=== PATIENT | female | born 1975 | race Caucasian/White ===

== ENCOUNTER 2017-03-22 08:41 | Day surgery (SDC) | payer BC ==
[2017-03-21 12:38] LABS: CHLORIDE,CL 109 mmol/L (98-110); SODIUM,NA 140 mmol/L (136-146)
[~2017-03-22 08:41] MED LIST: Fluorescein 5 ML Vial ONE; Lidocaine 2% 5 ML SDV ONE; Midazolam 1 MG/ML 2 ML SDV ONE; Neostigmine Methylsulfate 1 MG/ML 5 ML Syringe ONE; Octyl 2-Cyanoacrylate 1 Tube ONE; Ondansetron 4 MG/2 ML SDV ONE; Propofol 200 MG/20 ML SDV ONE; Rocuronium 10 MG/ML 10 ML Syringe ONE; Sodium Chloride 0.9% 10 ML Syringe FLUSH PRN; Sodium Chloride 0.9% 2.5 ML Syringe FLUSH PRN; ceFAZolin 2 GM in Premix Bag 1 BAG IV ONE; fentaNYL 100 MCG/2 ML SDV ONE
[2017-03-22] MEDS: Lactated Ringers 1,000 ML IV SCH ×2 (09:56→17:32)
--- NOTE | 2017-03-22 10:29 | PCM.PREANE ---
Preanesthetic Assessment - Anesthesia/Transfusion/Family Hx Anesthesia History: Prior Anesthesia Without Reaction Family History of Anesthesia Reaction: No Transfusion History: No Prior Transfusion(s) Intubation History: Unknown - Review of Systems General: No Symptoms Pulmonary: No Symptoms Cardiovascular: No Symptoms Gastrointestinal: No Symptoms Neurological: No Symptoms Other: Reports: None - Physical Assessment Height: 1.73 m Weight: 61.689 kg ASA Class: 2 Mental Status: Alert & Oriented x3 Airway Class: Mallampati = 3 Dentition: Reports: Normal Dentition Thyro-Mental Finger Breadths: 3 Mouth Opening Finger Breadths: 3 ROM/Head Extension: Full Lungs: Clear to Auscultation, Normal Respiratory Effort Cardiovascular: Regular Rate, Regular Rhythm - Lab Values: Laboratory Last Values WBC 3.88 K/uL (4.0-11.0) L 03/21/17 11:44 RBC 4.11 M/uL (4.30-5.90) L 03/21/17 11:44 Hgb 11.9 g/dL (12.0-16.0) L 03/21/17 11:44 Hct 35.6 % (36.0-46.0) L 03/21/17 11:44 MCV 86.6 fL (80.0-98.0) 03/21/17 11:44 MCH 29.0 pg (27.0-32.0) 03/21/17 11:44 MCHC 33.4 g/dL (31.0-37.0) 03/21/17 11:44 RDW Std Deviation 39.0 fl (28.0-62.0) 03/21/17 11:44 RDW Coeff of Severo 12 % (11.0-15.0) 03/21/17 11:44 Plt Count 220 K/uL (150-400) 03/21/17 11:44 MPV 9.30 fL (7.40-12.00) 03/21/17 11:44 Nucleated RBC % 0.0 /100WBC 03/21/17 11:44 Nucleated RBCs # 0 K/uL 03/21/17 11:44 Sodium 140 mmol/L (136-146) 03/21/17 11:44 Potassium 4.0 mmol/L (3.5-5.1) 03/21/17 11:44 Chloride 109 mmol/L (98-110) 03/21/17 11:44 Carbon Dioxide 25 mmol/L (21-31) 03/21/17 11:44 BUN 10 mg/dL (6.0-23.0) 03/21/17 11:44 Creatinine 0.7 mg/dL (0.6-1.5) 03/21/17 11:44 Est Cr Clr Drug Dosing 100.92 mL/min 03/21/17 11:44 Estimated GFR (MDRD) > 60.0 ml/min 03/21/17 11:44 Glucose 78 mg/dL (60-110) 03/21/17 11:44 Calcium 9.3 mg/dL (8.8-10.8) 03/21/17 11:44 HCG, Qual NEGATIVE (NEG) 03/21/17 11:44 Blood Type O NEGATIVE 03/21/17 11:44 Antibody Screen NEGATIVE 03/21/17 11:44 - Allergies Allergies/Adverse Reactions: Allergies Allergy/AdvReac Type Severity Reaction Status Date / Time No Known Allergies Allergy Verified 03/19/17 10:00 - Blood Blood Available: No - Anesthesia Plan Pre-Op Medication Ordered: None - Acknowledgements Anesthesia Type Planned: General Anesthesia Pt an Appropriate Candidate for the Planned Anesthesia: Yes Alternatives and Risks of Anesthesia Discussed w Pt/Guardian: Yes Pt/Guardian Understands and Agrees with Anesthesia Plan: Yes PreAnesthesia Questionnaire HEENT History: Reports: Other (See Below) Other HEENT History: wears glasses Gastrointestinal History: Reports: None Genitourinary History: Reports: None 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 [No Known Home Meds] 03/19/17 [History] - CURRENT (IN HOUSE) MEDS Current Meds: Current Medications Lactated Ringer's (Ringers, Lactated) 1,000 mls @ 125 mls/hr IV ASDIRECTED [facility] Last Admin: 03/22/17 09:56 Dose: 125 mls/hr Sodium Chloride (Saline Flush) 10 ml FLUSH ASDIRECTED PRN PRN Reason: Keep Vein Open Sodium Chloride (Saline Flush) 2.5 ml FLUSH ASDIRECTED PRN PRN Reason: Keep Vein Open Discontinued Medications Fentanyl (Sublimaze) Confirm Administered Dose 200 mcg .ROUTE .STK-MED ONE Stop: 03/22/17 07:06 Fluorescein Sodium (Ak-Fluor) Confirm Administered Dose 5 ml .ROUTE .STK-MED ONE Stop: 03/22/17 07:43 Glycopyrrolate () Confirm Administered Dose 1 mg .ROUTE .STK-MED ONE Stop: 03/22/17 07:05 Cefazolin Sodium/Dextrose 2 gm (/ Premix) 50 mls @ 100 mls/hr IV ONETIME ONE Stop: 03/21/17 08:49 Lidocaine (Xylocaine-Mpf 2%) Confirm Administered Dose 5 ml .ROUTE .STK-MED ONE Stop: 03/22/17 07:05 Midazolam HCl (Versed 1 Mg/Ml) Confirm Administered Dose 2 mg .ROUTE .STK-MED ONE Stop: 03/22/17 07:06 Neostigmine Methylsulfate (Neostigmine) Confirm Administered Dose 5 mg .ROUTE .STK-MED ONE Stop: 03/22/17 07:05 Octyl Cyanoacrylate (Dermabond Advance) Confirm Administered Dose 1 applic .ROUTE .STK-MED ONE Stop: 03/22/17 07:43 Ondansetron HCl (Zofran) Confirm Administered Dose 4 mg .ROUTE .STK-MED ONE Stop: 03/22/17 07:05 Propofol (Diprivan 20 Ml) Confirm Administered Dose 200 mg .ROUTE .STK-MED ONE Stop: 03/22/17 07:05 Rocuronium [place] (Zemuron) Confirm Administered Dose 100 mg .ROUTE .STK-MED ONE Stop: 03/22/17 07:05
[2017-03-22] MEDS ORDERED: Sodium Chloride 0.9% 20 ML ONE (11:11)
[2017-03-22] MEDS ORDERED: ceFAZolin 1 GM Vial ONE (11:11)
[2017-03-22] MEDS ORDERED: ePHEDrine 50 MG/ML SDV ONE (11:29)
[2017-03-22] MEDS ORDERED: fentaNYL 100 MCG/2 ML SDV ONE (11:37)
[2017-03-22] MEDS ORDERED: Furosemide 40 MG/4 ML VIAL ONE (11:45)
[2017-03-22] MEDS ORDERED: HYDROmorphone 2 MG/ML Syringe ONE (12:34)
[2017-03-22] MEDS ORDERED: Acetaminophen/oxyCODONE 325-5 MG Tab PO PRN (13:03)
[2017-03-22] MEDS ORDERED: Ketorolac 30 MG/ML SDV IVPUSH ONE (13:03)
[2017-03-22] MEDS ORDERED: Morphine 4 MG/ML Syringe IVPUSH PRN (13:03)
[2017-03-22] MEDS ORDERED: Ondansetron 4 MG/2 ML SDV IVPUSH PRN (13:03)
[2017-03-22] MEDS ORDERED: Promethazine 25 MG/ML SDV IM PRN (13:03)
[2017-03-22] MEDS ORDERED: Morphine 2 MG/ML Syringe IVPUSH PRN (13:03)
[2017-03-22] MEDS ORDERED: Ketorolac 30 MG/ML SDV IVPUSH PRN (13:03)
--- NOTE | 2017-03-22 13:09 | PCM.OPNOTE ---
- General Post-Op/Procedure Note Date of Surgery/Procedure: 03/22/17 Operative Procedure(s): TLH,Bila salpengectomy,L overectomy, and Cystoscopy. Pre Op Diagnosis: Ovarian Cysr , elenated CA125 L. ovarian cyst Post-Op Diagnosis: Same Anesthesia Technique: General ET Tube Primary Surgeon: Maciel Garza Press Machine Operator: Gabriella Noble EBL in mLs: 100 Complications: None Condition: Good
[2017-03-22] MEDS ORDERED: fentaNYL 100 MCG/2 ML SDV IVPUSH PRN (13:21)
[2017-03-22] MEDS ORDERED: HYDROmorphone 2 MG/ML Syringe IVPUSH ONE (13:21)
--- NOTE | 2017-03-22 14:02 | PCM.POSTAN ---
POST ANESTHESIA ASSESSMENT - MENTAL STATUS Mental Status: Alert, Oriented - RESPIRATORY Respiratory Status: Respiratory Rate WNL, Airway Patent, O2 Saturation Stable - CARDIOVASCULAR CV Status: Pulse Rate WNL, Blood Pressure Stable - GASTROINTESTINAL GI Status: No Symptoms - PAIN Pain Score: 0 - POST OP HYDRATION Hydration Status: Adequate & Stable
--- NOTE | 2017-03-22 14:34 | OR ---
SURGEON: Maciel Garza MD DATE OF PROCEDURE: 03/22/2017 PREOPERATIVE DIAGNOSES: 1. Right ovarian cyst. 2. Elevated CA-125. 3. Enlarged uterus. POSTOPERATIVE DIAGNOSES: 1. Right ovarian cyst. 2. Elevated CA-125. 3. Enlarged uterus. 4. Endometriosis of the pelvis and the uterus and both ovaries. 5. The frozen section for the right ovarian cyst has confirmed the finding of endometriosis. OPERATION PERFORMED: Diagnostic laparoscopy, peritoneal lavage, for opening cytology, right salpingectomy sent for frozen section, total laparoscopic hysterectomy, fulguration of endometriosis on the right ovary, bilateral salpingectomy, and cystoscopy. RING ATTACHER: HARLEY Arroyo. ANESTHESIA: General endotracheal intubation, Baudilio Villanueva and Dr. Hernandez. ESTIMATED BLOOD LOSS: 100 mL. COMPLICATION: None. FINDING: The patient had an endometrioma of the right ovary. There is endometriosis involving the entire uterus and the serosa, there is endometriosis involving the left ovary. There are endometriosis of the pelvic sidewalls and endometriosis of the cul-de-sac. By staging of endometriosis, this would be a stage III endometriosis of the pelvis according to the [employer] staging. INDICATION FOR THE SURGERY: Pinon refer to the admit note. PROCEDURE IN DETAIL: The patient was brought to the OR, properly identified. After adequate level of general anesthesia, the patient was placed in lithotomy position, prepped and draped in sterile fashion as usual and the [place] [facility] colpotomizer manipulator was placed in the uterus and the vagina and Watson catheter was placed in the bladder for drainage and then the operation shifted abdominally. Stab wound done beneath the umbilicus. The Veress needle was placed in the peritoneal cavity and that cavity insufflated to 6 L of carbon dioxide and then utilizing the Visiport technique, a 5-mm trocar, entered the abdomen through the scope beneath the umbilicus. Once we entered and then under direct vision, a 10- 12 trocar was placed in the left iliac fossa and 5-mm trocar in the right iliac fossa. We started by exploring the pelvis, which confirmed the above-mentioned diagnoses. I proceeded to do the opening cytology and fluid is collected and sent for cytology. I removed the right ovary, which is quite apparent now clinically that it has a large endometrioma and it is endometriosis and it is not cancerous; however, we removed the left ovary with the cyst and send it for histopathology, frozen section, which is reported later on, confirmed that this is an endometrioma and endometriosis. We proceeded with the procedure of doing the total laparoscopic hysterectomy, and that is done by coagulating and transecting the superior pedicle. The patient wanted to have right ovary to be preserved and she want every effort is made to preserve that ovary. So I went ahead and preserved that ovary; however, both tubes were removed with the specimen. The round ligament was coagulated and transected on both sides and then the anterior leaf of the broad ligament dissected downward medially pushing the bladder completely away from the operative field. Then, the uterine vessel was identified, coagulated, transected at the level of the internal vaginal ring. Once this got done, then the vagina entered anteriorly and in a circular manner using the Michael Harmonic scapula detaching the cervix from its attachment to the vagina. The uterus was removed vaginally and then pneumoperitoneum re- established by placing vaginal pack in the vagina. Went to proceed to close the vaginal cuff laparoscopically, using 2-0 PDS interrupted, and attention was paid to the right ovary at this time. The area of endometriosis on the ovary outside is cauterized with unipolar electrocautery. Then thorough irrigation of the pelvis was done with all the pedicles. There was no oozing, no bleeding. While we were doing that, we asked Anesthesia to give the patient fluorescein and then the abdomen was deflated and Watson catheter was removed. Cystoscopy was performed. The bladder was intact. Both ureteric orifices were seen with the dye coming from both of them. Thus, the patency of both ureters were verified. Satisfied with these findings, the procedure ended. The instrument and hardware were retrieved from the abdomen and the vagina and the multiple laparoscopic incision is closed in layers. Instrument and sponge count was correct. The patient tolerated the procedure well, went to recovery room in stable general condition. JESS / NUBIA /[id number]
--- NOTE | 2017-03-22 17:11 | PCM48HPAN ---
Post Anesthesia Note - EVALUATION WITHIN 48HRS OF ANESTHETIC Vital Signs in Normal Range: Yes Patient Participated in Evaluation: Yes Respiratory Function Stable: Yes Airway Patent: Yes Cardiovascular Function Stable: Yes Hydration Status Stable: Yes Pain Control Satisfactory: Yes Nausea and Vomiting Control Satisfactory: Yes Mental Status Recovered: Yes - COMMENTS/OBSERVATIONS Free Text/Narrative:: Denies any pain. States she is just "very tired."
[2017-03-23] MEDS: Acetaminophen/oxyCODONE 325-5 MG Tab PO PRN ×2 (00:13→08:44)
[2017-03-23 05:51] LABS: CHLORIDE,CL 106 mmol/L (98-110); SODIUM,NA 137 mmol/L (136-146)
[2017-03-23 08:15] VITALS: BP 98/54
--- NOTE | 2017-03-23 09:03 | PCM.SURGPN ---
- General Info Date of Service: 03/23/17 POD#: 1 Functional Status: Reports: Pain Controlled - Review of Systems General: Reports: No Symptoms HEENT: Reports: No Symptoms Pulmonary: Reports: No Symptoms Cardiovascular: Reports: No Symptoms Gastrointestinal: Reports: No Symptoms Genitourinary: Reports: No Symptoms Musculoskeletal: Reports: No Symptoms Skin: Reports: No Symptoms Neurological: Reports: No Symptoms Psychiatric: Reports: No Symptoms - Patient Data Vitals - Most Recent: Last Vital Signs Temp 37.3 C 03/23/17 08:00 Pulse 63 03/23/17 08:00 Resp 22 H 03/23/17 08:00 BP 98/54 L 03/23/17 08:00 Pulse Ox 100 03/23/17 08:00 Weight - Most Recent: 61.689 kg I&O - Last 24 Hours: Intake & Output 03/22/17 03/23/17 03/23/17 22:59 06:59 14:59 Intake Total 550 1700 Output Total 150 750 Balance 400 950 Lab Results Last 24 Hrs: Laboratory Results - last 24 hr 03/23/17 03/23/17 Range/Units 05:02 05:02 WBC 7.61 (4.0-11.0) K/uL RBC 3.12 L (4.30-5.90) M/uL Hgb 9.3 L (12.0-16.0) g/dL Hct 27.1 L (36.0-46.0) % MCV 86.9 (80.0-98.0) fL MCH 29.8 (27.0-32.0) pg MCHC 34.3 (31.0-37.0) g/dL RDW Std Deviation 38.7 (28.0-62.0) fl RDW Coeff of Severo 12 (11.0-15.0) % Plt Count 195 (150-400) K/uL MPV 9.40 (7.40-12.00) fL Neut % (Auto) 77.8 (48.0-80.0) % Lymph % (Auto) 13.8 L (16.0-40.0) % [place] % (Auto) 8.0 (0.0-15.0) % Eos % (Auto) 0.3 (0.0-7.0) % Baso % (Auto) 0.1 (0.0-1.5) % Neut # (Auto) 5.9 H (1.4-5.7) K/uL Lymph # (Auto) 1.1 (0.6-2.4) K/uL [place] # (Auto) 0.6 (0.0-0.8) K/uL Eos # (Auto) 0.0 (0.0-0.7) K/uL Baso # (Auto) 0.0 (0.0-0.1) K/uL Nucleated RBC % 0.0 /100WBC Nucleated RBCs # 0 K/uL Sodium 137 (136-146) mmol/L Potassium 4.1 (3.5-5.1) mmol/L Chloride 106 (98-110) mmol/L Carbon Dioxide 24 (21-31) mmol/L BUN 7 (6.0-23.0) mg/dL Creatinine 0.7 (0.6-1.5) mg/dL Est Cr Clr Drug Dosing 100.92 mL/min Estimated GFR (MDRD) > 60.0 ml/min Glucose 97 (60-110) mg/dL Calcium 8.5 L (8.8-10.8) mg/dL Med Orders - Current: Current Medications Fentanyl (Sublimaze) 50 mcg IVPUSH Q5M PRN PRN Reason: Pain (severe 7-10) Stop: 03/23/17 13:21 Lactated Ringer's (Ringers, Lactated) 1,000 mls @ 125 mls/hr IV ASDIRECTED [facility] Last Admin: 03/22/17 17:32 Dose: 125 mls/hr Ketorolac Tromethamine (Toradol) 30 mg IVPUSH Q6H PRN PRN Reason: Pain (severe 7-10) Stop: 03/27/17 13:03 Last Admin: 03/22/17 15:56 Dose: 30 mg Morphine Sulfate (Morphine) 2 mg IVPUSH Q2H PRN PRN Reason: Pain (severe 7-10) Morphine Sulfate (Morphine) 4 mg IVPUSH Q2H PRN PRN Reason: Pain (severe 7-10) Ondansetron HCl (Zofran) 4 mg IVPUSH Q6H PRN PRN Reason: Nausea/Vomiting Last Admin: 03/22/17 14:53 Dose: 4 mg Oxycodone/Acetaminophen (Percocet 325-5 Mg) 1 tab PO Q4H PRN PRN Reason: Pain (moderate 4-6) Last Admin: 03/23/17 08:44 Dose: 1 tab Oxycodone/Acetaminophen (Percocet 325-5 Mg) 2 tab PO Q4H PRN PRN Reason: Pain (moderate 4-6) Promethazine HCl (Phenergan) 25 mg IM Q6H PRN PRN Reason: Nausea/Vomiting Last Admin: 03/22/17 20:00 Dose: 25 mg Sodium Chloride (Saline Flush) 10 ml FLUSH ASDIRECTED PRN PRN Reason: Keep Vein Open Sodium Chloride (Saline Flush) 2.5 ml FLUSH ASDIRECTED PRN PRN Reason: Keep Vein Open Discontinued Medications Cefazolin Sodium (Ancef) Confirm Administered Dose 2 gm .ROUTE .STK-MED ONE Stop: 03/22/17 11:12 Ephedrine Sulfate (Ephedrine Sulfate) Confirm Administered Dose 50 mg .ROUTE .STK-MED ONE Stop: 03/22/17 11:30 Fentanyl (Sublimaze) Confirm Administered Dose 200 mcg .ROUTE .STK-MED ONE Stop: 03/22/17 07:06 Fentanyl (Sublimaze) Confirm Administered Dose 100 mcg .ROUTE .STK-MED ONE Stop: 03/22/17 11:38 Fluorescein Sodium (Ak-Fluor) Confirm Administered Dose 5 ml .ROUTE .STK-MED ONE Stop: 03/22/17 07:43 Furosemide (Lasix) Confirm Administered Dose 40 mg .ROUTE .STK-MED ONE Stop: 03/22/17 11:46 Glycopyrrolate () Confirm Administered Dose 1 mg .ROUTE .STK-MED ONE Stop: 03/22/17 07:05 Hydromorphone HCl (Dilaudid) Confirm Administered Dose 2 mg .ROUTE .STK-MED ONE Stop: 03/22/17 12:35 Hydromorphone HCl (Dilaudid) 0 mg IVPUSH ONETIME ONE Stop: 03/22/17 13:22 Last Admin: 03/22/17 16:35 Dose: Not Given Cefazolin Sodium/Dextrose 2 gm (/ Premix) 50 mls @ 100 mls/hr IV ONETIME ONE Stop: 03/21/17 08:49 Last Admin: 03/22/17 16:34 Dose: Not Given Sodium Chloride (Normal Saline) Confirm Administered Dose 20 mls @ as directed .ROUTE .STK-MED ONE Stop: 03/22/17 11:12 Ketorolac Tromethamine (Toradol) 30 mg IVPUSH ONETIME ONE Stop: 03/22/17 13:04 Last Admin: 03/22/17 16:35 Dose: Not Given Lidocaine (Xylocaine-Mpf 2%) Confirm Administered Dose 5 ml .ROUTE .STK-MED ONE Stop: 03/22/17 07:05 Midazolam HCl (Versed 1 Mg/Ml) Confirm Administered Dose 2 mg .ROUTE .STK-MED ONE Stop: 03/22/17 07:06 Neostigmine Methylsulfate (Neostigmine) Confirm Administered Dose 5 mg .ROUTE .STK-MED ONE Stop: 03/22/17 07:05 Octyl Cyanoacrylate (Dermabond Advance) Confirm Administered Dose 1 applic .ROUTE .STK-MED ONE Stop: 03/22/17 07:43 Ondansetron HCl (Zofran) Confirm Administered Dose 4 mg .ROUTE .STK-MED ONE Stop: 03/22/17 07:05 Propofol (Diprivan 20 Ml) Confirm Administered Dose 200 mg .ROUTE .STK-MED ONE Stop: 03/22/17 07:05 Rocuronium [place] (Zemuron) Confirm Administered Dose 100 mg .ROUTE .STK-MED ONE Stop: 03/22/17 07:05 - Exam Wound/Incisions: Healing Well General: Alert, Oriented HEENT: Pupils Equal Neck: Supple Lungs: Clear to Auscultation, Normal Respiratory Effort Cardiovascular: Regular Rate, Regular Rhythm GI/Abdominal Exam: Normal Bowel Sounds, Soft, Non-Tender, No Organomegaly, No Distention, No Abnormal Bruit, No Mass, Pelvis Stable Extremities: Normal Inspection, Normal Range of Motion, Non-Tender, No Pedal Edema, Normal Capillary Refill Skin: Warm, Dry, Intact Neurological: No New Focal Deficit Psy/Mental Status: Alert, Normal Affect, Normal Mood - Problem List Review Problem List Initiated/Reviewed/Updated: Yes - My Orders Last 24 Hours: Active Orders 24 hr Category Date Time Status Patient Status [ADT] Routine ADT 03/22/17 13:03 Active Antiembolic Devices [RC] PER UNIT ROUTINE Care 03/22/17 13:04 Active Notify Provider Vital Signs [RC] ASDIRECTED Care 03/22/17 13:03 Active Oxygen Therapy [RC] ASDIRECTED Care 03/22/17 13:03 Active RT Incentive Spirometry [RC] Q2HWA Care 03/22/17 13:03 Active Up With Assistance [RC] PER UNIT ROUTINE Care 03/22/17 13:03 Active Up ad Mame [RC] PER UNIT ROUTINE Care 03/22/17 13:03 Active Vital Signs [RC] PER UNIT ROUTINE Care 03/22/17 13:03 Active Regular Diet [DIET] Diet 03/22/17 Dinner Active Acetaminophen/oxyCODONE [Percocet 325-5 MG] Med 03/22/17 13:03 Active 1 tab PO Q4H PRN Acetaminophen/oxyCODONE [Percocet 325-5 MG] Med 03/22/17 13:03 Active 2 tab PO Q4H PRN Ketorolac [Toradol] Med 03/22/17 13:03 Active 30 mg IVPUSH Q6H PRN Morphine Med 03/22/17 13:03 Active 2 mg IVPUSH Q2H PRN Morphine Med 03/22/17 13:03 Active 4 mg IVPUSH Q2H PRN Ondansetron [Zofran] Med 03/22/17 13:03 Active 4 mg IVPUSH Q6H PRN Promethazine [Phenergan] Med 03/22/17 13:03 Active 25 mg IM Q6H PRN fentaNYL [Sublimaze] Med 03/22/17 13:21 Active 50 mcg IVPUSH Q5M PRN Peripheral IV Discontinue [OM.PC] Routine Oth 03/22/17 13:03 Ordered Sequential Compression Device [OM.PC] Per Unit Routine Oth 03/22/17 13:03 Ordered Resuscitation Status Routine Resus Stat 03/22/17 13:03 Ordered Medication Orders Fentanyl (Sublimaze) 50 mcg IVPUSH Q5M PRN PRN Reason: Pain (severe 7-10) Stop: 03/23/17 13:21 Lactated Ringer's (Ringers, Lactated) 1,000 mls @ 125 mls/hr IV ASDIRECTED [facility] Last Admin: 03/22/17 17:32 Dose: 125 mls/hr Infusion: 03/22/17 17:32 Dose: 125 mls/hr Admin: 03/22/17 09:56 Dose: 125 mls/hr Ketorolac Tromethamine (Toradol) 30 mg IVPUSH Q6H PRN PRN Reason: Pain (severe 7-10) Stop: 03/27/17 13:03 Last Admin: 03/22/17 15:56 Dose: 30 mg Morphine Sulfate (Morphine) 2 mg IVPUSH Q2H PRN PRN Reason: Pain (severe 7-10) Morphine Sulfate (Morphine) 4 mg IVPUSH Q2H PRN PRN Reason: Pain (severe 7-10) Ondansetron HCl (Zofran) 4 mg IVPUSH Q6H PRN PRN Reason: Nausea/Vomiting Last Admin: 03/22/17 14:53 Dose: 4 mg Oxycodone/Acetaminophen (Percocet 325-5 Mg) 1 tab PO Q4H PRN PRN Reason: Pain (moderate 4-6) Last Admin: 03/23/17 08:44 Dose: 1 tab Admin: 03/23/17 00:13 Dose: 1 tab Oxycodone/Acetaminophen (Percocet 325-5 Mg) 2 tab PO Q4H PRN PRN Reason: Pain (moderate 4-6) Promethazine HCl (Phenergan) 25 mg IM Q6H PRN PRN Reason: Nausea/Vomiting Last Admin: 03/22/17 20:00 Dose: 25 mg Sodium Chloride (Saline Flush) 10 ml FLUSH ASDIRECTED PRN PRN Reason: Keep Vein Open Sodium Chloride (Saline Flush) 2.5 ml FLUSH ASDIRECTED PRN PRN Reason: Keep Vein Open - Assessment Assessment (Free Text/Narrative):: Status post laparoscopic hysterectomy postoperative day #1 patient doing well voiding without any problem minimum vaginal bleeding and have minimum of pain the patient is passing gas - Plan Plan (Free Text/Narrative):: The patient sent home today in the process rectum instruction is given a prescription for Percocet 7.5/325 for postoperative pain is given to the patient in the postoperative instruction is given to her the patient follow-up appointment in 2 weeks
== END 2017-03-23 09:05 | disposition home or self-care (01) ==
LOC: MW.SDS 08:41 → MW.MS 13:03 → MW.SDS 03-23 09:05
PROVIDERS: ATTEND Obstetrics & Gynecology
DX: N80.1 Endometriosis of ovary (principal); N80.2 Endometriosis of fallopian tube; N80.0 Endometriosis of uterus; D25.9 Leiomyoma of uterus, unspecified; F41.9 Anxiety disorder, unspecified; Z98.890 Other specified postprocedural states; Z78.9 Other specified health status
CPT/HCPCS: 36415; 58571; 80048; 84703; 85025; 85027; 86850; 86900; 86901; 88104; 88307; 88331; A9270; J0690; J1170; J1885; J1940; J2250; J2405; J2550; J3010; J7120; 00840; J2704

== ENCOUNTER 2020-07-01 07:45 | Emergency (ER) | payer BC ==
--- NOTE | 2020-07-01 08:21 | EDM.PDOC ---
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 Patient she was walking ability stepped on a rock and felt her ankle twist inward. Patient states that she is not sure if she can put pain on it she has not tried her was able to carry her to the car. Patient complains of pain to the medial side. Patient denies any foot pain numbness tingling or decrease in range of motion. Patient any other injuries. R ankle Pain Score (Numeric/FACES): 6 - Related Data Allergies Allergy/AdvReac Type Severity Reaction Status Date / Time No Known Allergies Allergy Verified 07/01/20 07:57 Home Meds: Home Meds . 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: Dysfunctional Uterine Bleeding, , Spontaneous Psychiatric History: Reports: Anxiety Hematologic History: Reports: Anemia - Infectious Disease History Infectious Disease History: Reports: Chicken Pox - Past Surgical History Head Surgeries/Procedures: Reports: None HEENT Surgical History: Reports: Adenoidectomy, Tonsillectomy Female Surgical History: Reports: Breast Biopsy, D&C, Hysterectomy Other Female Surgeries/Procedures: lumpectomy Social & Family History - Family History Family Medical History: No Pertinent Family History - Caffeine Use Caffeine Use: Reports: Tea - Recreational Drug Use Recreational Drug Use: No Review of Systems - Review of Systems Review Of Systems: See Below Constitutional: Reports: No Symptoms Eyes: Reports: No Symptoms Ears: Reports: No Symptoms Nose: Reports: No Symptoms Mouth/Throat: Reports: No Symptoms Respiratory: Reports: No Symptoms Cardiovascular: Reports: No Symptoms GI/Abdominal: Reports: No Symptoms Genitourinary: Reports: No Symptoms Musculoskeletal: Reports: Leg Pain Skin: Reports: No Symptoms Neurological: Reports: No Symptoms Psychiatric: Reports: No Symptoms ED EXAM, GENERAL - Physical Exam Exam: See Below Exam Limited By: No Limitations General Appearance: Alert, WD/WN Respiratory/Chest: No Respiratory Distress Extremities: Normal Range of Motion, Joint Swelling, Other (tenderness and swelling to medial mallous of ankle ) Neurological: Alert, Oriented, Normal Cognition Course - Vital Signs Last Recorded V/S: Last Vital Signs Temp 97.8 F 07/01/20 07:58 Pulse 58 L 07/01/20 07:58 Resp 18 07/01/20 07:58 BP 125/54 L 07/01/20 07:58 Pulse Ox 98 07/01/20 07:58 - Re-Assessments/Exams Free Text/Narrative Re-Assessment/Exam: 07/01/20 09:30 Pt has a likely sprain will place an Michael wrap and crutches. What you are ordering crutches Why you are ordering it to assist with ambulating How it will benefit patient assist with ambulating How long is patient to use it 7-10days Departure - Departure Time of Disposition: 09:32 Disposition: Home, Self-Care 01 Condition: Good Clinical Impression: Ankle sprain - Discharge Information *PRESCRIPTION DRUG MONITORING PROGRAM REVIEWED*: Not Applicable *COPY OF PRESCRIPTION DRUG MONITORING REPORT IN PATIENT EFREN: Not Applicable Instructions: Ankle Sprain, [id number] Referrals: Pardeep Patel MD [Primary Care Provider] - Forms: ED Department Discharge Additional Instructions: The following information is given to patients seen in the emergency department who are being discharged to home. This information is to outline your options for follow-up care. We provide all patients seen in our emergency department with a follow-up referral. The need for follow-up, as well as the timing and circumstances, are variable depending upon the specifics of your emergency department visit. If you don't have a primary care physician on staff, we will provide you with a referral. We always advise you to contact your personal physician following an emergency department visit to inform them of the circumstance of the visit and for follow-up with them and/or the need for any referrals to a consulting specialist. The emergency department will also refer you to a specialist when appropriate. This referral assures that you have the opportunity for follow-up care with a specialist. All of these measure are taken in an effort to provide you with optimal care, which includes your follow-up. Under all circumstances we always encourage you to contact your private physician who remains a resource for coordinating your care. When calling for follow-up care, please make the office aware that this follow-up is from your recent emergency room visit. If for any reason you are refused follow-up, please contact the [facility] Emergency Department at and asked to speak to the emergency department charge nurse. Please follow up with your primary care physician. If you do not have a primary care physician, see below: [facility] [address], [address] [place] [address] We have provided you crutches and Michael wrap. Please continue to ice and keep your ankle elevated. If your pain does not improve the next few weeks please follow-up. Sepsis Event Note (ED) - Evaluation Sepsis Screening Result: No Definite Risk - Focused Exam Vital Signs: Vital Signs Temp Pulse Resp BP Pulse Ox 07/01/20 07:58 97.8 F 58 L 18 125/54 L 98 - Assessment/Plan Assessment:: Patient is a 44-year-old female who presents today for right ankle pain after twisting her ankle while stepping on a rock. Patient has no tenderness in the foot only tenderness to the right medialis will obtain x-ray and reassess.
--- NOTE | 2020-07-01 09:25 | CR ---
Indication: Twisted ankle, pain and swelling. Technique: Right ankle 3 views. Comparison: None. Findings: No acute fracture or dislocation. Ankle mortise is intact. Mild soft tissue swelling adjacent to the lateral malleolus. Impression: Mild soft tissue swelling adjacent to the lateral malleolus. No other acute findings. Dictated by Rosmery Shaw MD @ Jul 01 2020 9:22AM Signed by Dr. Rosmery Shaw @ Jul 01 2020 9:24AM
[2020-07-01 09:57] VITALS: BP 128/80; PULSE 62
== END 2020-07-01 09:50 | disposition home or self-care (01) ==
LOC: MW.ED 07:45
DX: S93.401A Sprain of unspecified ligament of right ankle, initial encounter (principal); X50.1XXA Overexertion from prolonged static or awkward postures, initial encounter
CPT/HCPCS: 73610-26-RT; 73610-RT; 99283; 99283-25